=== PATIENT | male | born 1965 | race African-American/Black ===

== ENCOUNTER 2021-09-14 09:46 | Emergency (ER) | payer OTHER ==
[~2021-09-14] VITALS: Ht 165.1 cm; Wt 74.8 kg
[2021-09-14 10:12] VITALS: BP 124/85
[2021-09-14] MEDS ORDERED: LISI-285 PO (10:21)
== END 2021-09-14 10:29 | disposition home or self-care (01) ==
LOC: ER 09:46
DX: I10 Essential (primary) hypertension (principal); Z76.0 Encounter for issue of repeat prescription; Z79.899 Other long term (current) drug therapy